=== PATIENT | male | born 1930 | race Caucasian/White ===

== ENCOUNTER 2016-04-19 11:10 | Inpatient (IN) | payer MEDICARE ==
[~2016-04-19] VITALS: Ht 175.3 cm; Wt 83.6 kg
[2016-04-19 12:29] LABS: BASOPHILS % (AUTO) 0 % (0-2); EOSINOPHILS # (AUTO) 0.1 10^3uL; EOSINOPHILS % (AUTO) 2 % (0-4); LYMPHOCYTES # (AUTO) 1.1 X10^3; MEAN CORPUSCULAR HGB CONC 33.5 g/dL (31.0-37.0); MEAN CORPUSCULAR VOLUME 94 FL (80-100); MEAN PLATELET VOLUME 9.4 FL (6.0-9.5); MONOCYTES # (AUTO) 0.6 X10^3; MONOCYTES % (AUTO) 10 % (3-11); NEUTROPHILS # (AUTO) 4.3 X10^3; NEUTROPHILS % (AUTO) 70 % (51-67); PLATELET COUNT 163 10^3uL (150-450); WHITE BLOOD COUNT 6.15 10^3uL (4.0-11.0)
[2016-04-19 12:37] LABS: MEAN CORPUSCULAR HEMOGLOBIN 31.4 PG (26.0-34.0)
[2016-04-19 12:42] LABS: ALBUMIN 3.8 g/dL (3.4-5.0); ANION GAP 11.3 MEQ/L (3-15); CALCULATED IONIZED CALCIUM 3.7 mg/dL (3.8-4.6); TOTAL PROTEIN 7.1 g/dL (6.4-8.5)
[2016-04-19 12:44] LABS: INFLUENZA VIRUS TYPE A ANTIBOD Positive (NEGATIVE); INFLUENZA VIRUS TYPE B ANTIBOD Negative (NEGATIVE)
--- NOTE | 2016-04-19 13:58 | NUR ---
85 yr old w/m admitted to 306 via cart from ED. Alert, disoriented. O2 on at 2L. No coughing at time of admission. Denies pain except when he coughs. IV NS running at 100 cc/hr in RFA - 20 gauge from ED.
[2016-04-19 14:18] VITALS: BP 162/78
[2016-04-19] MEDS ORDERED: POLYETHYLENE GLYCOL 17 GM (MIRALAX) PACKET PO PRN (14:20)
[2016-04-19] MEDS ORDERED: ACETAMINOPHEN 325 MG TAB (TYLENOL) PO PRN (14:20)
[2016-04-19] MEDS ORDERED: IBUPROFEN 600 MG (MOTRIN) TAB PO PRN (14:20)
[2016-04-19] MEDS ORDERED: ONDANSETRON 2 MG/ML (Z0FRAN) 2 ML VIAL IV PRN (14:20)
[2016-04-19] MEDS ORDERED: ALBUTEROL/IPRATROPIUM 3MG-0.5MG/3ML (DUONEB) NEB VIAL INH PRN (14:55)
[2016-04-19] MEDS ORDERED: NS FLUSH 10 ML PRN IV (15:05)
[2016-04-19] MEDS ORDERED: NS FLUSH 3 ML PRN IV (15:05)
[2016-04-19 16:16] VITALS: BP 162/78
--- NOTE | 2016-04-19 16:22 | NUR ---
Frequently takes off O2. Reminded of its importance. Finishing up lunch.
--- NOTE | 2016-04-19 16:50 | NUR ---
Pt. had O2 off again, 89% on room air. Pt. unable to use IS at this time.
--- NOTE | 2016-04-19 18:00 | NUR ---
Tylenol 650 mg given for elevated temp - 100.2. Skin hot and dry. Helped to bathroom - voids 100 cc's. Confused. Frequently pulls O2 off. Slightly unsteady on ambulation.
--- NOTE | 2016-04-19 18:50 | NUR ---
Report received, care assumed. Pt resting in bed. Continues to take oxygen off. Attempts to get out of bed without assistance. Will continue to monitor. Tab alarm on.
--- NOTE | 2016-04-19 19:10 | NUR ---
Pt moved from room 306 to 312. Pt tolerated well. Pt requires more supervision. Pt very impulsive, does not call for assist when needed. Keeps removing oxygen. Will continue to monitor. Tab alarm on. Call light in reach. Side rails up times three.
--- NOTE | 2016-04-19 19:20 | NUR ---
Attempting to get out of bed to bathroom - sets tabs alarm off. Voids 100 cc's. Moved to room 312 where can be watched more closely.
--- NOTE | 2016-04-19 20:50 | NUR ---
Pt resting in bed. Took evening medications without difficulty. Has intermittent hacking cough, non-productive. Denies other needs. Lights turned down. Call light in reach. Fall precautions remain in place.
[2016-04-19] MEDS: OSELTAMIVIR (TAMIFLU) 75 MG CAP PO SCH (20:56)
[2016-04-19] MEDS: MEMANTINE 10 MG (NAMENDA) TABLET PO SCH (20:56)
[2016-04-19] MEDS: SENNOSIDES/DOCUSATE 8.6MG/50MG (SENOKOT S) TABLET PO SCH (20:56)
[2016-04-19] MEDS: DONEPEZIL 10 MG (ARICEPT) TAB PO SCH (20:56)
[2016-04-19] MEDS: SIMvastatin 20 MG (ZOCOR) TAB PO SCH (20:56)
[2016-04-19] MEDS: meTOprolol TARTRATE 25 MG (LOPRESSOR) TABLET PO SCH (20:56)
[2016-04-19] MEDS ORDERED: NON-FORMULARY MEDICATION 1 EA EA (Memantine HCl/Donepezil HCl (Namzaric 28 mg-10 mg Capsul PO SCH (21:00)
[2016-04-20 00:08] VITALS: BP 120/62
--- NOTE | 2016-04-20 05:50 | NUR ---
Pt has slept most of the night. Continues to forget to call for assistance when needing to get up. Tab alarm sounded a few times during the night. Pt is confused. Needs many reminders to place O2 back on. Pt resting quietly now. No needs at this time. Call light in reach. Tab alarm on. Side rails up times three.
[2016-04-20 06:06] LABS: BASOPHILS % (AUTO) 0 % (0-2); EOSINOPHILS # (AUTO) 0.1 10^3uL; EOSINOPHILS % (AUTO) 1 % (0-4); LYMPHOCYTES # (AUTO) 1.5 X10^3; MEAN CORPUSCULAR HGB CONC 33.7 g/dL (31.0-37.0); MEAN CORPUSCULAR VOLUME 95 FL (80-100); MONOCYTES # (AUTO) 0.6 X10^3; MONOCYTES % (AUTO) 11 % (3-11); NEUTROPHILS # (AUTO) 3.5 X10^3; NEUTROPHILS % (AUTO) 61 % (51-67); PLATELET COUNT 142 10^3uL (150-450)
[2016-04-20 06:11] LABS: MEAN CORPUSCULAR HEMOGLOBIN 31.8 PG (26.0-34.0)
[2016-04-20 06:14] LABS: ALBUMIN 3.3 g/dL (3.4-5.0); ANION GAP 10.2 MEQ/L (3-15); CALCULATED IONIZED CALCIUM 3.8 mg/dL (3.8-4.6); TOTAL PROTEIN 6.4 g/dL (6.4-8.5)
[2016-04-20 07:30] VITALS: BP 134/86
[2016-04-20] MEDS: TAMSULOSIN 0.4 MG (FLOMAX) CAP PO SCH (08:44)
[2016-04-20] MEDS: MEMANTINE 10 MG (NAMENDA) TABLET PO SCH ×2 (08:44→21:42)
[2016-04-20] MEDS: meTOprolol TARTRATE 25 MG (LOPRESSOR) TABLET PO SCH ×2 (08:45→21:41)
[2016-04-20] MEDS: ENOXAPARIN 40 MG/0.4 ML (LOVENOX) SYR SC SCH (08:45)
[2016-04-20] MEDS: NS FLUSH 3 ML DAILY IV SCH (08:45)
[2016-04-20] MEDS: CHOLECALCIFEROL 1000 INT UNITS (VITAMIN D3) TABLET PO SCH (08:45)
[2016-04-20] MEDS: VIT A,C & E/LUTEIN/MINERALS (I-VITE) TABLET PO SCH (08:50)
[2016-04-20] MEDS: OSELTAMIVIR (TAMIFLU) 75 MG CAP PO SCH ×2 (09:24→21:41)
[2016-04-20 11:58] LABS: BILIRUBIN,URINE Negative (Negative); CLARITY,URINE Clear; COLOR,URINE Yellow; GLUCOSE, URINE (UA) Negative (Negative); LEUKOCYTE ESTERASE ,URINE Negative (Negative); UROBILINOGEN,URINE 0.2 mg/dL (0.2-1.0)
[2016-04-20 12:22] LABS: URINE CENTRIFUGED VOLUME 12 mL
--- NOTE | 2016-04-20 14:24 | NUR ---
MULTIDISCIPLINARY MTG/DR. LIZ: Pt. admitted for respiratory failure due to Influenza A. Pt. is doing better and receiving standard therapies. Pt. to possibly discharge tomorrow. No discharge needs identified at this time.
--- NOTE | 2016-04-20 15:10 | NUR ---
Med Rec completed via list from dr office and external med history.
[2016-04-20 15:51] VITALS: BP 126/72
--- NOTE | 2016-04-20 16:53 | NUR ---
Norm is up at the side of bed this AM. He is confused but follows commands and directions. He is up to urinal and to chair with walker and SBA. With prompts he is able to follow directions. Gait is unsteady. He sits up in chair for breakfast and rests intermittently. Hygiene is cared for with total assist and Norm is compliant with cares. at the bedside mid morning and through the lunch hour. Assessment and cares are ongoing, Patient to work with PT and OT for future rehabilitation. Currently Norm is resting in bed under the covers. Bed alarms on.
--- NOTE | 2016-04-20 19:07 | NUR ---
report given to Sophy COURTNEY and care relinquished
--- NOTE | 2016-04-20 20:40 | NUR ---
Pt sleeping soundly in bed on 2 l/min NC, SPO2 95%, HR 63, RR 16. Pt is in no distress, no PRN intervention indicated.
[2016-04-20] MEDS: DONEPEZIL 10 MG (ARICEPT) TAB PO SCH (21:41)
[2016-04-20] MEDS: SENNOSIDES/DOCUSATE 8.6MG/50MG (SENOKOT S) TABLET PO SCH (21:41)
[2016-04-20] MEDS: SIMvastatin 20 MG (ZOCOR) TAB PO SCH (21:42)
[2016-04-20] MEDS: CYCLOSPORINE 0.05% OS SCH (21:42)
[2016-04-20] MEDS: OMEGA-3 ACID ETHYL ESTERS 1 GM (LOVAZA) CAPSULE PO SCH (21:42)
[2016-04-21 00:22] VITALS: BP 145/70
--- NOTE | 2016-04-21 05:30 | NUR ---
IV site is becoming dislodged and only approximately 1/4" of catheter remains inserted. Bed is not wet and fluid has continued to infuse up to this point, but patient is up to use the bathroom and site at this time is not able to be flushed or salvaged. DC'd. New site established with 20G in left forearm/wrist with 2nd attempt. Flushes easily and fluids restarted.
--- NOTE | 2016-04-21 06:30 | NUR ---
Patient has denied needs throughout night except assistance to bathroom. Denies pain. Has rare occasional harsh nonproductive cough. Remains in droplet isolation.
--- NOTE | 2016-04-21 07:00 | NUR ---
Received report from Sophy Pink RN. Assumed patient care.
[2016-04-21 07:44] VITALS: BP 138/61
[2016-04-21] MEDS: NS FLUSH 3 ML DAILY IV SCH (08:51)
[2016-04-21] MEDS: CHOLECALCIFEROL 1000 INT UNITS (VITAMIN D3) TABLET PO SCH (08:51)
[2016-04-21] MEDS: OMEGA-3 ACID ETHYL ESTERS 1 GM (LOVAZA) CAPSULE PO SCH ×2 (08:52→20:13)
[2016-04-21] MEDS: TAMSULOSIN 0.4 MG (FLOMAX) CAP PO SCH (08:52)
[2016-04-21] MEDS: meTOprolol TARTRATE 25 MG (LOPRESSOR) TABLET PO SCH ×2 (08:52→20:14)
[2016-04-21] MEDS: VIT A,C & E/LUTEIN/MINERALS (I-VITE) TABLET PO SCH (08:52)
[2016-04-21] MEDS: OSELTAMIVIR (TAMIFLU) 75 MG CAP PO SCH ×2 (08:52→20:14)
[2016-04-21] MEDS: CYCLOSPORINE 0.05% OS SCH ×2 (08:52→20:13)
[2016-04-21] MEDS: ASPIRIN 81 MG CHEW (CHILDREN'S ASA) PO SCH (08:53)
[2016-04-21] MEDS: MEMANTINE 10 MG (NAMENDA) TABLET PO SCH ×2 (08:53→20:13)
[2016-04-21] MEDS: ENOXAPARIN 40 MG/0.4 ML (LOVENOX) SYR SC SCH (08:56)
--- NOTE | 2016-04-21 10:37 | NUR ---
NUTRITION ASSESSMENT Level 1 Patient: Norm Yu Age/Sex: 85/M Date Screened: 04[birth year]21[birth year]16 Weight: 183.9#/83.6 kg Height: 69 inches Primary Diagnosis: influenza A Diet Order: regular Relevant labs: glucose 102 Food allergies: N Nutrition Assessment Criteria Age over 80: 4 points Body Mass Index (BMI) under 19: N Admission Screening Indicates Risk? N Moderate/High Risk Diagnosis: N TPN or PPN: N NPO or clear liquid diet: N Serum Glucose <70 or >180: N Hgb A1c >6.7: N/A Total: 4 points Risk Screen: __ Patient at low nutritional risk based on available data; reevaluate in 5-7 days _X_ Patient at moderate nutritional risk based on available data; reevaluate in 3-5 days __ Patient at high nutritional risk; complete Nutrition Assessment within 48 hours of admission. Comments: No weight changes, no GI concerns. Pt. lives at home with his ; he has dementia but is able to function ok. Eating bites-75%; expect intake to continue to improve with resolution of illness. Will reassess as documented above.
[2016-04-21] MEDS: VITAMIN E PO SCH (10:41)
[2016-04-21 15:45] VITALS: BP 160/70
[2016-04-21] MEDS: SIMvastatin 20 MG (ZOCOR) TAB PO SCH (20:14)
[2016-04-21] MEDS: SENNOSIDES/DOCUSATE 8.6MG/50MG (SENOKOT S) TABLET PO SCH (20:14)
[2016-04-21] MEDS: DONEPEZIL 10 MG (ARICEPT) TAB PO SCH (20:14)
--- NOTE | 2016-04-21 23:40 | NUR ---
Droplet precautions observed upon assessment. Pt. awake; alert and orientated; answers questions appropriately. Pt. denies discomfort; occasional harsh cough noted. Lung sounds reflect: left-clear to diminished; right-diminished with expiratory wheezes. Pt. able to ambulate to and fro bathroom with use of walker and standby assist. Call light and H2O within reach. Pt.'s room is located close to nurse's station for frequent observation. Safety measures in place.
[2016-04-21 23:56] VITALS: BP 141/73
--- NOTE | 2016-04-22 04:35 | NUR ---
Pt. sets off tabs; ready to ambulate to bathroom; assist x 1. O2 at 2L via NC; pt. conversational; jokes with staff; pleasantly confused at times. Call light and H2O within reach. Safety measures in place.
--- NOTE | 2016-04-22 06:15 | NUR ---
Pt. slept in intervals; ambulates with one assist to bathroom; denies discomfort; O2 at 2L via NC; occasional cough; pleasantly confused at times although largely cooperative and cheerful.
[2016-04-22 08:00] VITALS: BP 140/70
[2016-04-22] MEDS: CYCLOSPORINE 0.05% OS SCH ×2 (09:19→20:26)
[2016-04-22] MEDS: TAMSULOSIN 0.4 MG (FLOMAX) CAP PO SCH (09:20)
[2016-04-22] MEDS: VITAMIN E PO SCH (09:20)
[2016-04-22] MEDS: MEMANTINE 10 MG (NAMENDA) TABLET PO SCH ×2 (09:20→20:27)
[2016-04-22] MEDS: NS FLUSH 3 ML DAILY IV SCH (09:20)
[2016-04-22] MEDS: ENOXAPARIN 40 MG/0.4 ML (LOVENOX) SYR SC SCH (09:20)
[2016-04-22] MEDS: OSELTAMIVIR (TAMIFLU) 75 MG CAP PO SCH ×2 (09:20→20:27)
[2016-04-22] MEDS: CHOLECALCIFEROL 1000 INT UNITS (VITAMIN D3) TABLET PO SCH (09:21)
[2016-04-22] MEDS: ASPIRIN 81 MG CHEW (CHILDREN'S ASA) PO SCH (09:21)
[2016-04-22] MEDS: VIT A,C & E/LUTEIN/MINERALS (I-VITE) TABLET PO SCH (09:21)
[2016-04-22] MEDS: OMEGA-3 ACID ETHYL ESTERS 1 GM (LOVAZA) CAPSULE PO SCH ×2 (09:21→20:27)
[2016-04-22] MEDS: meTOprolol TARTRATE 25 MG (LOPRESSOR) TABLET PO SCH ×2 (09:21→20:27)
--- NOTE | 2016-04-22 10:00 | NUR ---
Patient off O2 for trial. Currently resting in bed.
--- NOTE | 2016-04-22 11:15 | NUR ---
O2 saturation 88-91% on RA. O2 back on at 1L/NC. Saturation 90-93% on one liter.
--- NOTE | 2016-04-22 14:16 | NUR ---
Has some diarrhea stool. Unable to clean self properly. Assisted. Lays down to rest.
--- NOTE | 2016-04-22 15:14 | NUR ---
Information sent to [facility] to review for acceptance to skilled care at their facility. Possibly discharge tomorrow.
[2016-04-22 15:28] VITALS: BP 146/66
--- NOTE | 2016-04-22 18:29 | NUR ---
Patient has been without complaint today. Has been up in chair for meals, walked with PT and napped this afternoon in bed. was here today to visit. Patient forgetful of limitations and forgets to leave O2 on. Stands up on own frequently. Tabs and bed/chair alarms are in place. Diarrhea episode this afternoon.
[2016-04-22] MEDS: SENNOSIDES/DOCUSATE 8.6MG/50MG (SENOKOT S) TABLET PO SCH (20:26)
[2016-04-22] MEDS: SIMvastatin 20 MG (ZOCOR) TAB PO SCH (20:27)
[2016-04-22] MEDS: DONEPEZIL 10 MG (ARICEPT) TAB PO SCH (20:27)
[2016-04-23 00:07] VITALS: BP 125/68
--- NOTE | 2016-04-23 06:05 | NUR ---
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 SL intact. Droplet precautions continue to be observed.
[2016-04-23 07:50] VITALS: BP 140/79
[2016-04-23] MEDS: CHOLECALCIFEROL 1000 INT UNITS (VITAMIN D3) TABLET PO SCH (08:53)
[2016-04-23] MEDS: ASPIRIN 81 MG CHEW (CHILDREN'S ASA) PO SCH (08:53)
[2016-04-23] MEDS: VIT A,C & E/LUTEIN/MINERALS (I-VITE) TABLET PO SCH (08:53)
[2016-04-23] MEDS: OMEGA-3 ACID ETHYL ESTERS 1 GM (LOVAZA) CAPSULE PO SCH (08:53)
[2016-04-23] MEDS: TAMSULOSIN 0.4 MG (FLOMAX) CAP PO SCH (08:53)
[2016-04-23] MEDS: CYCLOSPORINE 0.05% OS SCH (08:54)
[2016-04-23] MEDS: ENOXAPARIN 40 MG/0.4 ML (LOVENOX) SYR SC SCH (08:54)
[2016-04-23] MEDS: OSELTAMIVIR (TAMIFLU) 75 MG CAP PO SCH (08:54)
[2016-04-23] MEDS: MEMANTINE 10 MG (NAMENDA) TABLET PO SCH (08:54)
[2016-04-23] MEDS: meTOprolol TARTRATE 25 MG (LOPRESSOR) TABLET PO SCH (08:54)
[2016-04-23] MEDS: VITAMIN E PO SCH (08:54)
[2016-04-23] MEDS: NS FLUSH 3 ML DAILY IV SCH (08:55)
--- NOTE | 2016-04-23 09:00 | NUR ---
Pt sets tabs and pressure alarm off numerous times due to standing without assistance. Yellow gown/socks in place, pressure pad to chair, tabs alarm in place, when in bed- bed alarm turned on for pt safety. Close to desk for frequent visual monitoring.
--- NOTE | 2016-04-23 11:25 | NUR ---
IV dc'd from LW- tip intact, site without redness/swelling.
--- NOTE | 2016-04-23 11:31 | NUR ---
Pt. has been accepted to [facility] for skilled care. Pt. will discharge today to house [phone] [phone]. 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
--- NOTE | 2016-04-23 13:29 | NUR ---
Report called to [place] [place] [id number], given to Nneka Hoyt at ext [phone]. Questions answered. [facility] [place] Transportation here- Pt dismissed to [place] [id number] at this time.
== END 2016-04-23 13:30 | DRG 189 ==
LOC: EDUNIT# 11:10 → ED 11:12 → MED/SURG 13:09
PROVIDERS: ADMIT Internal Medicine; ATTEND Internal Medicine
DX: J96.01 Acute respiratory failure with hypoxia (principal); J10.1 Influenza due to other identified influenza virus with other respiratory manifestations; E86.0 Dehydration; F03.90 Unspecified dementia, unspecified severity, without behavioral disturbance, psychotic disturbance, mood disturbance, and anxiety; I10 Essential (primary) hypertension; E55.9 Vitamin D deficiency, unspecified; N40.0 Benign prostatic hyperplasia without lower urinary tract symptoms; E78.5 Hyperlipidemia, unspecified; M16.0 Bilateral primary osteoarthritis of hip; B97.89 Other viral agents as the cause of diseases classified elsewhere; Z90.01 Acquired absence of eye; Z95.0 Presence of cardiac pacemaker; Z87.891 Personal history of nicotine dependence
CPT/HCPCS: 36415; 71020; 80053; 81003; 81015; 83735; 85025; 86140; 87502; 99283; 99284

== ENCOUNTER → 2016-04-27 | Outpatient (CLI) | payer MEDICARE | LOC: RAD 14:07 | PROVIDERS: ATTEND Internal Medicine | DX: J11.1 Influenza due to unidentified influenza virus with other respiratory manifestations (principal) | CPT/HCPCS: 71020 ==